=== PATIENT | female | born 1965 | race Caucasian/White ===

== ENCOUNTER 2018-04-18 06:42 | Day surgery (SDC) | payer BC ==
[2018-04-18] MEDS ORDERED: MIDAZOLAM 1 MG/ML 2 ML INJ ×3 (09:41)
[2018-04-18] MEDS ORDERED: FENTAnyl 50 MCG/ML VIAL (09:41)
== END 2018-04-18 11:38 | disposition home or self-care (01) ==
LOC: GIL 06:42
DX: Z12.11 Encounter for screening for malignant neoplasm of colon (principal); D12.4 Benign neoplasm of descending colon
CPT/HCPCS: 45380; 88305